=== PATIENT | female | born 1990 | race Caucasian/White ===

== ENCOUNTER → 2017-07-22 07:55 | Emergency (ER) | payer MEDICAID ==
[2017-07-22 09:10] LABS: BASOPHILS 0.3 % (0-2); HEMATOCRIT 40.3 % (36.0-48.0); HEMOGLOBIN 13.8 g/dL (12-16); IMMATURE GRANULOCYTES 0.1 % (0-5); LYMPHOCYTES 29.5 % (15-50); MCH 29.9 pg (26.0-34.0); MCHC 34.2 g/dL (31.0-37.0); MCV 87.2 fL (80.0-100.0); MEAN PLATELET VOLUME 9.7 fL (7.4-10.4); MONOCYTES 5.2 % (2-11); NEUTROPHILS 63.9 % (40-80); PLATELET COUNT 229 10x3/uL (130-400); RBC 4.62 10x6/uL (4.00-5.40); RDW 12.1 % (11.5-14.5); WBC 7.9 10x3/uL (4.8-10.8)
[2017-07-22 09:24] LABS: ALKALINE PHOSPHATASE 60 U/L (46-116); ALT (SGPT) 15 U/L (10-68); BILIRUBIN - TOTAL 1.16 mg/dL (0.2-1.3); CALC OSMOLALITY 272 mosm/kg (275-300); CARBON DIOXIDE 25.8 mmol/L (21.0-32.0); CHLORIDE - SERUM 103 mmol/L (98-107); CREATININE - SERUM 0.7 mg/dL (0.6-1.3); GLUCOSE 93 mg/dL (74-106); POTASSIUM - SERUM 3.9 mmol/L (3.5-5.1); SODIUM 137 mmol/L (136-145); UREA NITROGEN 9 mg/dL (7-18); eGFR NON AFRICAN AMERICAN > 90 mL/min (90-120)
[2017-07-22 09:56] LABS: HCG URINE POSITIVE (NEGATIVE)
[2017-07-22 10:12] LABS: APPEARANCE CLOUDY (CLEAR); BACTERIA MODERATE /hpf (NONE SEEN); BILIRUBIN NEGATIVE (NEGATIVE); COLOR YELLOW (YELLOW); GLUCOSE NEGATIVE (NEGATIVE); KETONE NEGATIVE (NEGATIVE); LEUKOCYTE ESTERASE TRACE (NEGATIVE); MUCUS >1+ /lpf (NONE SEEN); NITRITE NEGATIVE (NEGATIVE); PROTEIN NEGATIVE (NEGATIVE); SPECIFIC GRAVITY 1.015 (1.005-1.020); UROBILINOGEN NORMAL (NORMAL); WHITE CELLS - URINE 0-5 /hpf (0-5)
== END | disposition home or self-care (01) ==
LOC: D.ER 07:55
PROVIDERS: Emergency Medicine
DX: O26.899 Other specified pregnancy related conditions, unspecified trimester (principal); Z3A.00 Weeks of gestation of pregnancy not specified; R00.2 Palpitations

== ENCOUNTER 2017-10-08 08:22 | Emergency (ER) | payer MEDICAID ==
[2017-10-08 09:08] LABS: BASOPHILS 0.2 % (0-2); EOSINOPHILS 1.5 % (0-7); HEMATOCRIT 37.3 % (36.0-48.0); HEMOGLOBIN 12.8 g/dL (12-16); IMMATURE GRANULOCYTES 0.2 % (0-5); LYMPHOCYTES 26.1 % (15-50); MCH 29.8 pg (26.0-34.0); MCHC 34.3 g/dL (31.0-37.0); MCV 86.9 fL (80.0-100.0); MEAN PLATELET VOLUME 9.6 fL (7.4-10.4); MONOCYTES 5.9 % (2-11); NEUTROPHILS 66.1 % (40-80); PLATELET COUNT 255 10x3/uL (130-400); RBC 4.29 10x6/uL (4.00-5.40); RDW 11.8 % (11.5-14.5); WBC 11.8 10x3/uL (4.8-10.8)
[2017-10-08 09:26] LABS: CALC OSMOLALITY 284 mosm/kg (275-300); CALCIUM 9.2 mg/dL (8.5-10.1); CARBON DIOXIDE 24.2 mmol/L (21.0-32.0); CHLORIDE - SERUM 106 mmol/L (98-107); CREATININE - SERUM 0.6 mg/dL (0.6-1.3); GLUCOSE 95 mg/dL (74-106); POTASSIUM - SERUM 3.7 mmol/L (3.5-5.1); SODIUM 142 mmol/L (136-145); T4 THYROXIN - FREE 1.43 ng/dL (0.76-1.46); T4 THYROXINE 11.2 ug/dL (4.7-13.3); TROPONIN-I < 0.017 ng/mL (0.000-0.060); UREA NITROGEN 17 mg/dL (7-18); eGFR NON AFRICAN AMERICAN > 90 mL/min (90-120)
[2017-11-28 10:33] VITALS: BMI 20.9
== END 2017-10-08 10:00 | disposition home or self-care (01) ==
LOC: D.ER 08:22
PROVIDERS: Emergency Medicine
DX: R00.0 Tachycardia, unspecified (principal); G44.209 Tension-type headache, unspecified, not intractable; F17.200 Nicotine dependence, unspecified, uncomplicated

== ENCOUNTER → 2017-11-02 08:11 | Outpatient (CLI) | payer MEDICAID ==
[~2017-11-02 08:11] MED LIST: ACETAMINOPHEN500 M1 PO
--- NOTE | 2017-11-05 08:18 | EC ---
PATIENT:GAGANDEEP HAWKINS DATE OF SERVICE: 11/02/17 SEX: F MEDICAL RECORD: [id number] DATE OF : [birth year] LOCATION:D[facility] AGE OF PATIENT: 27 ADMISSION DATE: 11/02/17 REFERRING PHYSICIAN: INTERPRETING PHYSICIAN: HILARIA TRISTAN MD ECHOCARDIOGRAM REPORT ECHO CHARGES 4 ECHO COMPLETE CLINICAL DIAGNOSIS: PALPITATIONS/CP/SYNCOPE ECHOCARDIOGRAPHIC MEASUREMENTS (adult normal given) AC root (d.<3.7cm) 2.8 cm LV Septum d (<1.2 cm> 0.8 cm Valve Excursion 1.7 cm LV Septum (systole) 1.4 cm Left Atria (s.<4.0cm> 3.0 cm LVPW d(<1.2cm) 0.8 cm RV (d.<2.3cm) 1.7 cm LVPW (sytole) 1.4 cm LV diastole(<5.6CM) 4.3 cm MV E-F(>70mm/sec) cm LV systole 2.8 cm LVOT Diameter 1.8 cm MV exc.(>10mm) cm Est.ejection fraction (50-75%) % Pericardial Effusion N DOPPLER: LVIT cm/sec A 55.0 cm/sec E 70.0 cm/sec LA cm/sec RVSP 35.0 mmHg LVOT 80.0 cm/sec AOP1/2T m/s Asc. Ao 111 cm/sec RVOT 56.0 cm/sec RA cm/sec PA 79.0 cm/sec AV Gradient Peak 5.0 mmHg AV Mean 2.2 mmHg AV Area 2.1 cm MV Gradient Peak 3.4 mmHg MV Mean 1.1 mmHg MV Area cm COMMENTS: Manager Drive: Inderjit BENTLEYOE Dry Chain Worker: Sam Tristan TAPE# PACS DATE OF SERVICE: 11/02/2017 PROCEDURE: Transthoracic echocardiogram. FINDINGS: 1. Left ventricle, normal size, normal function. Ejection fraction 65%. 2. The left atrium is normal size, normal function. 3. The aortic valve is normal size, normal function. 4. The mitral valve is normal. 5. The tricuspid valve has trace tricuspid regurgitation, normal right ECHOCARDIOGRAM REPORT [id number] GAGANDEEP HAWKINS ventricular systolic pressures. 6. The pericardium is normal. 7. The pulmonic valve is not well visualized. There is trace pulmonic insufficiency. CONCLUSION: This is a normal echocardiogram. No distinct structural or functional abnormality seen. TRANSINT:[id number] Voice Confirmation ID: [id number] DOCUMENT ID: [id number] HILARIA TRISTAN MD at 0818 CC: [id number] DICTATION DATE: 11/03/17 0829 NETWORKS SOFTWARE CONSULTANT: 11/03/17 1343 [facility] CLI 11/02/17 [id number] [place] [address]
[2017-11-28 10:33] VITALS: BMI 20.9
== END | disposition home or self-care (01) ==
LOC: D.ECHO 11-01 10:30
DX: R00.2 Palpitations (principal); R07.9 Chest pain, unspecified; R55 Syncope and collapse

== ENCOUNTER 2017-11-28 09:16 | Day surgery (SDC) | payer MEDICAID ==
[~2017-11-28] VITALS: Ht 152.4 cm; Wt 48.5 kg
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
[2017-11-28] MEDS ORDERED: ACETAMINOPHEN500 M1 PO (10:19)
[2017-11-28 10:33] VITALS: BP 132/52; Ht 152.4 cm; Wt 48.5 kg
[2017-11-28 10:42] LABS: HCG URINE NEGATIVE (NEGATIVE)
[2017-11-28 11:04] LABS: BASOPHILS 0.2 % (0-2); EOSINOPHILS 0.7 % (0-7); HEMATOCRIT 40.4 % (36.0-48.0); HEMOGLOBIN 13.5 g/dL (12-16); IMMATURE GRANULOCYTES 0.2 % (0-5); LYMPHOCYTES 21.7 % (15-50); MCH 30.3 pg (26.0-34.0); MCHC 33.4 g/dL (31.0-37.0); MCV 90.6 fL (80.0-100.0); MEAN PLATELET VOLUME 10.1 fL (7.4-10.4); MONOCYTES 4.6 % (2-11); NEUTROPHILS 72.6 % (40-80); PLATELET COUNT 258 10x3/uL (130-400); RBC 4.46 10x6/uL (4.00-5.40); RDW 12.6 % (11.5-14.5)
== END 2017-11-28 14:00 | disposition home or self-care (01) ==
LOC: D.OPS 09:16
PROVIDERS: Obstetrics & Gynecology
DX: N80.1 Endometriosis of ovary (principal); N80.3 Endometriosis of pelvic peritoneum; N94.10 Unspecified dyspareunia; Z01.812 Encounter for preprocedural laboratory examination

== ENCOUNTER → 2017-12-16 10:23 | Outpatient (CLI) | payer MEDICAID ==
[2017-11-28 10:33] VITALS: BMI 20.9
--- NOTE | ~2017-12-16 | ST ---
PATIENT:GAGANDEEP HAWKINS MEDICAL RECORD: [id number] SEX: F LOCATION:[facility] [place] ORDER #: ADMISSION DATE: 12/16/17 AGE OF PATIENT: 27 REFERRING PHYSICIAN: INTERPRETING PHYSICIAN: HILARIA TRISTAN MD DATE OF SERVICE: 12/16/2017 PROCEDURE: Joesph directed treadmill stress test. DESCRIPTION OF PROCEDURE: The patient exercised for a total of 8 minutes. She reached greater than 85% of her max predicted heart rate. She had good baseline ST segments for interpretation. She had no ST-T wave changes with exercise, recovery, or rest. The procedure was terminated successfully. IMPRESSION: The patient has a normal treadmill directed stress test without any arrhythmias seen before, after, or during. Her functional residual capacity is negative for inducible ischemia. TRANSINT:[id number] Voice Confirmation ID: [id number] DOCUMENT ID: [id number] HILARIA TRISTAN MD at 1020 CC: [id number] DICTATION DATE: 12/19/17 1131 CONTENT ANALYST: 12/19/17 1414 [facility] CLI 12/16/[address] [address]
== END | disposition home or self-care (01) ==
LOC: D.CN 12-06 08:00
DX: R00.2 Palpitations (principal); R07.9 Chest pain, unspecified; R55 Syncope and collapse

== ENCOUNTER → 2018-01-11 16:51 | Outpatient (CLI) | payer MEDICAID ==
[2017-11-28 10:33] VITALS: BMI 20.9
[2018-01-11 18:46] LABS: BASOPHILS 0.2 % (0-2); EOSINOPHILS 1.9 % (0-7); HEMATOCRIT 42.1 % (36.0-48.0); IMMATURE GRANULOCYTES 0.1 % (0-5); LYMPHOCYTES 34.1 % (15-50); MCH 30.2 pg (26.0-34.0); MCHC 33.3 g/dL (31.0-37.0); MCV 90.7 fL (80.0-100.0); MEAN PLATELET VOLUME 10.8 fL (7.4-10.4); MONOCYTES 4.3 % (2-11); NEUTROPHILS 59.4 % (40-80); RBC 4.64 10x6/uL (4.00-5.40); RDW 12.2 % (11.5-14.5); WBC 8.8 10x3/uL (4.8-10.8)
[2018-01-11 19:08] LABS: PLATELET COUNT 327 10x3/uL (130-400)
[2018-01-11 19:25] LABS: CHOL - HDL RATIO 1.9 ratio (2.3-4.1); LDL-HDL RATIO 0.8 ratio (1.5-3.5); T4 THYROXINE 9.2 ug/dL (4.7-13.3); THYROID STIMULATING HORMONE 1.05 uIU/mL (0.36-3.74)
== END | disposition home or self-care (01) ==
LOC: D.LABREF 16:51
PROVIDERS: Internal Medicine Cardiovascular Disease
DX: R00.2 Palpitations (principal)

== ENCOUNTER 2019-08-01 06:58 | Emergency (ER) | payer OTHER ==
[~2019-08-01] VITALS: Ht 152.4 cm; Wt 47.7 kg
[2019-08-01 07:12] VITALS: BP 123/76; Ht 152.4 cm; Wt 47.7 kg
[2019-08-01] MEDS ORDERED: ALBUTEROL SULF8.5 GM INH (07:56)
--- NOTE | 2019-08-01 08:00 | NUR ---
PT STATES RELIEF AFTER UPDRAFT.
== END 2019-08-01 08:04 | disposition home or self-care (01) ==
LOC: OBSVTIME → D.ER 06:58 → D.MS 08:06 → OBSVTIME 08:06 → D.ER 08:06
DX: J45.909 Unspecified asthma, uncomplicated (principal)

== ENCOUNTER → 2019-08-21 15:55 | Outpatient (CLI) | payer OTHER ==
[2019-08-01 07:12] VITALS: BMI 20.5
[~2019-08-21 15:55] MED LIST changes: +ALBUTEROL SULF8.5 GM INH
== END | disposition home or self-care (01) ==
LOC: D.RT 15:55
PROVIDERS: ATTEND Internal Medicine Pulmonary Disease
DX: R06.00 Dyspnea, unspecified (principal); R91.8 Other nonspecific abnormal finding of lung field

== ENCOUNTER 2020-07-12 19:18 | Emergency (ER) | payer OTHER ==
[~2020-07-12] VITALS: Ht 152.4 cm; Wt 52.7 kg
[2020-07-12 19:23] VITALS: Ht 152.4 cm; Wt 52.7 kg
[2020-07-12] MEDS ORDERED: SYMBICORT 16010.2 GM INH (19:25)
[2020-07-12 19:55] LABS: BASOPHILS 0.2 % (0-2); EOSINOPHILS 3.6 % (0-7); HEMATOCRIT 40.3 % (36.0-48.0); HEMOGLOBIN 13.4 g/dL (12-16); IMMATURE GRANULOCYTES 0.1 % (0-5); LYMPHOCYTES 35.8 % (15-50); MCH 29.3 pg (26.0-34.0); MCHC 33.3 g/dL (31.0-37.0); MEAN PLATELET VOLUME 9.1 fL (7.4-10.4); MONOCYTES 5.9 % (2-11); NEUTROPHILS 54.4 % (40-80); RBC 4.58 10x6/uL (4.00-5.40); RDW 12.1 % (11.5-14.5); WBC 8.2 10x3/uL (4.8-10.8)
[2020-07-12 19:56] LABS: PLATELET COUNT 222 10x3/uL (130-400)
[2020-07-12 20:04] LABS: CALC OSMOLALITY 275 mosm/kg (275-300); CALCIUM 8.7 mg/dL (8.5-10.1); CARBON DIOXIDE 26.1 mmol/L (21.0-32.0); CHLORIDE - SERUM 103 mmol/L (98-107); CREATININE - SERUM 0.8 mg/dL (0.6-1.3); GLUCOSE 92 mg/dL (74-106); POTASSIUM - SERUM 3.7 mmol/L (3.5-5.1); SODIUM 138 mmol/L (136-145); UREA NITROGEN 12 mg/dL (7-18); eGFR NON AFRICAN AMERICAN 90 mL/min (90-120)
[2020-07-12 20:13] LABS: ALKALINE PHOSPHATASE 74 U/L (30-120); ALT (SGPT) 20 U/L (10-68); BILIRUBIN - TOTAL 1.05 mg/dL (0.2-1.3); TROPONIN-I < 0.017 ng/mL (0.000-0.060)
[2020-07-12 20:49] VITALS: BP 126/67
== END 2020-07-12 20:49 | disposition home or self-care (01) ==
LOC: D.ER 19:18
PROVIDERS: Family Medicine
DX: R07.89 Other chest pain (principal); R06.02 Shortness of breath; I10 Essential (primary) hypertension